=== PATIENT | female | born 1950 | race Caucasian/White ===

== ENCOUNTER → 2020-08-26 | Day surgery (SDC) | payer MEDICARE, BC, OTHER ==
[~2020-08-26] MED LIST: ALDACTONE25 MG PO; BAYER CHEWABLE81 MG PO; COZAAR50 MG PO; ELIQUIS5 MG PO; FEOSOL325 MG PO; FLONASE 0.05% N16 GM; KENALOG CR 0.0215 GM EXT; LIPITOR40 MG PO; SYNTHROID50 MCG PO; VITAMIN C500 M4 PO; VITAMIN D21250 MCG PO
== END | disposition home or self-care (01) ==
LOC: OR 06:27
DX: K57.30 Diverticulosis of large intestine without perforation or abscess without bleeding (principal); K64.0 First degree hemorrhoids; D68.9 Coagulation defect, unspecified; I10 Essential (primary) hypertension; I25.10 Atherosclerotic heart disease of native coronary artery without angina pectoris; M81.0 Age-related osteoporosis without current pathological fracture; M19.90 Unspecified osteoarthritis, unspecified site; E03.9 Hypothyroidism, unspecified; Z86.010 Personal history of colon polyps; Z80.0 Family history of malignant neoplasm of digestive organs; Z86.73 Personal history of transient ischemic attack (TIA), and cerebral infarction without residual deficits; Z91.040 Latex allergy status; Z88.8 Allergy status to other drugs, medicaments and biological substances; Z79.01 Long term (current) use of anticoagulants; Z79.82 Long term (current) use of aspirin; Z79.899 Other long term (current) drug therapy
CPT/HCPCS: J2001; J2704; J7040

== ENCOUNTER → 2021-03-22 | Outpatient (CLI) | payer MEDICARE, BC, OTHER | LOC: SLEEP-COR 14:22 | DX: G47.33 Obstructive sleep apnea (adult) (pediatric) (principal); G47.61 Periodic limb movement disorder | CPT/HCPCS: 95810 ==